=== PATIENT | female | born 1945 | race Caucasian/White ===

== ENCOUNTER → 2016-11-20 | Outpatient (CLI) | payer MEDICARE ==
[~2016-11-20] MED LIST: OMNIPAQUE 350 MG/ML, 150 ML BOTTLE ONE
== END | disposition home or self-care (01) ==
LOC: CFH 13:02
PROVIDERS: ATTEND Specialist
DX: C82.14 Follicular lymphoma grade II, lymph nodes of axilla and upper limb (principal); M47.892 Other spondylosis, cervical region; J84.10 Pulmonary fibrosis, unspecified; K76.89 Other specified diseases of liver
CPT/HCPCS: 70491; 71260; 74177; Q9967

== ENCOUNTER → 2017-04-23 | Outpatient (CLI) | payer MEDICARE ==
[~2017-04-23] MED LIST changes: +LIDOCAINE 1%, 20ML ONE; +LIDOCAINE 1%-EPI 1:100K, 20ML ONE; -OMNIPAQUE 350 MG/ML, 150 ML BOTTLE ONE
== END | disposition home or self-care (01) ==
LOC: CFH 07:23
PROVIDERS: ATTEND Specialist
DX: N63.32 Unspecified lump in axillary tail of the left breast (principal); R59.1 Generalized enlarged lymph nodes; Z85.72 Personal history of non-Hodgkin lymphomas
CPT/HCPCS: 19083; 38505; 76641; 88305; J3490

== ENCOUNTER → 2017-05-12 | Outpatient (CLI) | payer MEDICARE | END | disposition home or self-care (01) | LOC: PETCFH 09:39 | PROVIDERS: ATTEND Specialist | DX: R59.0 Localized enlarged lymph nodes (principal); C82.14 Follicular lymphoma grade II, lymph nodes of axilla and upper limb | CPT/HCPCS: 78815; A9552 ==

== ENCOUNTER → 2017-06-04 | Outpatient (CLI) | payer MEDICARE | LOC: ROC 13:51 | PROVIDERS: ATTEND Radiology Radiation Oncology | DX: Z08 Encounter for follow-up examination after completed treatment for malignant neoplasm (principal); C82.04 Follicular lymphoma grade I, lymph nodes of axilla and upper limb; N63.20 Unspecified lump in the left breast, unspecified quadrant; G89.29 Other chronic pain | CPT/HCPCS: G0463 ==

== ENCOUNTER → 2017-08-11 | Outpatient (CLI) | payer MEDICARE | END | disposition home or self-care (01) | LOC: ROC 09:03 | PROVIDERS: ATTEND Radiology Radiation Oncology | DX: Z08 Encounter for follow-up examination after completed treatment for malignant neoplasm (principal); C82.14 Follicular lymphoma grade II, lymph nodes of axilla and upper limb | CPT/HCPCS: G0463 ==

== ENCOUNTER → 2017-12-04 | Outpatient (CLI) | payer MEDICARE | END | disposition home or self-care (01) | LOC: ROC 10:06 | PROVIDERS: ATTEND Radiology Radiation Oncology | DX: C82.14 Follicular lymphoma grade II, lymph nodes of axilla and upper limb (principal) | CPT/HCPCS: G0463 ==

== ENCOUNTER 2020-03-31 07:13 | Outpatient (CLI) | payer MEDICARE | END 2020-03-31 23:59 | disposition home or self-care (01) | LOC: ROC 07:13 | PROVIDERS: ATTEND Radiology Radiation Oncology | DX: Z08 Encounter for follow-up examination after completed treatment for malignant neoplasm (principal); C82.14 Follicular lymphoma grade II, lymph nodes of axilla and upper limb | CPT/HCPCS: G0463 ==

== ENCOUNTER 2020-04-26 08:16 | Outpatient (CLI) | payer MEDICARE | END 2020-04-26 23:59 | disposition home or self-care (01) | LOC: ROC 08:16 | PROVIDERS: ATTEND Radiology Radiation Oncology | DX: Z08 Encounter for follow-up examination after completed treatment for malignant neoplasm (principal); C82.14 Follicular lymphoma grade II, lymph nodes of axilla and upper limb | CPT/HCPCS: G0463 ==